=== PATIENT | female | born 2005 | race Caucasian/White ===

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

== ENCOUNTER 2024-05-05 18:53 | Emergency (ER) | payer OTHER, SELFPAY ==
[2024-05-05 19:06] VITALS: BP 145/82; PULSE 106; RESP 16; O2SAT 100
--- NOTE | 2024-05-05 19:13 | ED.GENADULT ---
HPI - General Adult General Chief complaint: Urogenital-Female Stated complaint: stomach bloated/side pain/can't urinate Time Seen by Provider: 05/05/24 19:13 Source: patient and RN notes reviewed Mode of arrival: ambulatory Limitations: no limitations History of Present Illness HPI narrative: 18-year-old female presented for complaint of left-sided abdominal pain radiating to the back, bloating and constipation over the past 9 days. Endorses some nausea and decreased urine output today. Pain is intermittent, sharp to the abdomen. Endorses dribbling and pain with urination at times. LBM today, but she states she has multiple stools a day. She was able to eat dinner, she had [employer] without difficulty. Denies vomiting, diarrhea, hematochezia, melena, fevers. patient is on Depo shot, no menses Related Data Home Medications Medication Instructions Recorded Confirmed lamotrigine 150 mg tablet 150 mg PO DAILY 11/30/20 05/05/24 clonidine HCl 0.1 mg tablet 0.1 mg PO BID 05/05/24 05/05/24 Allergies Allergy/AdvReac Type Severity Reaction Status Date / Time No Known Allergies Allergy Verified 03/20/24 08:30 Review of Systems Review of Systems: CONSTITUTIONAL: Denies body aches, fever, chills ENT: Denies rhinorrhea, congestion CARDIOVASCULAR: Denies chest pain, palpitations, or edema. RESPIRATORY: Denies cough or dyspnea. GASTROINTESTINAL: Endorses abdominal pain, nausea, Denies vomiting, diarrhea, hematochezia, melena, hematemesis GENITOURINARY: Endorses decreased urine output Denies hematuria, or CVA tenderness. SKIN: Denies rash, itching, or wounds. MUSCULOSKELETAL: Denies back pain, joint pain, or myalgia. NEUROLOGIC: Denies headache, numbness, tingling, or weakness. All systems reviewed & are unremarkable except as noted in HPI and below PMFSH Past Medical History Medical History Anxiety and depression Bipolar Irregular periods No significant past medical history Surveillance for Depo-Provera contraception Surgical History Surgical History No significant past surgical history Family History Family History Other No significant family history Social History Social History Smoking status: Never smoker Second hand tobacco smoke exposure: No Alcohol intake: current Alcohol use details: 1-2 a year Substance use: never Substance use type: does not use Do You Feel Safe in your Home?: Yes Lack of Transportation: No Lack of Food: Never True Current Housing: I Have Housing Concerned About Future Housing: No Difficulty Paying Gas/Electric Bills: No Difficulty Paying for Meds: No Currently Unemployed: No Education: High School Diploma/GED Difficulty w/ Childcare or Family Care: No Living arrangements: with family Additional living arrangements comments: mother father Occupation/Education: occupation Additional occupation/education comments: [employer] Gender identity (if verbalized by the patient): Female Sexual Orientation (if Verbalized by the Patient): Straight or Heterosexual Comments At time of signature, I have reviewed and agree with nursing past medical, surgical, social and family history unless otherwise noted. Please see nursing chart for further information. There is no relevant family history pertinent to the presenting complaint Exam Narrative: GENERAL: mildly ill-appearing, and in no acute distress. EYES: EOMI. Conjunctivae normal. ENT: Mucous membranes pink and moist. CHEST: No respiratory distress. Clear to auscultation. HEART: Regular rate and rhythm. No murmur appreciated. Normal peripheral pulses. ABDOMEN: abd soft, nondistended, normal active bowel sounds. diffusely tender abdomen with guarding, re
[2024-05-05 19:19] LABS: EDUAAPPEAR Clear; EDUABILI Negative; EDUABLOOD Negative; EDUACOLOR1 Light/Pale; EDUAGLUCOSE Negative; EDUAKETONE Negative; EDUALEUKO Negative; EDUANITRATE Negative; EDUAPROTEIN Negative
== END 2024-05-05 19:25 | disposition short-term general hospital (02) ==
LOC: EXPBETH 18:55
PROVIDERS: Emergency Provider Nurse Practitioner Family; PCP Pediatrics
DX: R10.30 Lower abdominal pain, unspecified (principal); F31.9 Bipolar disorder, unspecified
CPT/HCPCS: 81003; 99212; G0463

== ENCOUNTER 2024-05-26 15:33 | Emergency (ER) | payer OTHER, SELFPAY ==
[2024-05-26 15:40] VITALS: BP 129/75; PULSE 96; RESP 20; TEMP 37.4; O2SAT 100
[2024-05-26 16:03] LABS: EDUAAPPEAR Cloudy; EDUABILI Negative; EDUABLOOD 1+; EDUACOLOR1 Yellow; EDUAGLUCOSE Negative; EDUAKETONE Negative; EDUALEUKO 1+; EDUANITRATE Negative; EDUAPH 8.5; EDUAPROTEIN 1+
--- NOTE | 2024-05-26 16:08 | ED.FEMALEGU ---
HPI - Female Genitourinary General Chief complaint: Abdominal Pain Stated complaint: pain on right side/nausea Time Seen by Provider: 05/26/24 16:08 Source: patient Mode of arrival: ambulatory Limitations: no limitations History of Present Illness HPI Narrative: 18-year-old female presents with complaint of urinary frequency, burning for 4 days. Reports right lower abdominal pain, low-grade fever, nausea starting today. Patient reports history kidney infection, kidney stones. No flank pain at this time. Able to keep down fluids, has not vomited. All systems reviewed and negative except as noted above. Related Data Home Medications Medication Instructions Recorded Confirmed clonidine HCl 0.1 mg tablet 0.1 mg PO BID 05/05/24 05/26/24 fluticasone 250 mcg-salmeterol 50 inhalation 05/26/24 05/26/24 mcg/dose blistr powdr for inhalation lamotrigine 25 mg tablet 25 mg PO DAILY 05/26/24 05/26/24 Allergies Allergy/AdvReac Type Severity Reaction Status Date / Time No Known Allergies Allergy Verified 05/26/24 15:49 Review of Systems Review of Systems: CONSTITUTIONAL: Denies fever, chills, or sweats. EYES: Denies visual changes, redness, or discharge. ENT: Denies rhinorrhea, congestion, sore throat, or otalgia. CARDIOVASCULAR: Denies chest pain, palpitations, or edema. RESPIRATORY: Denies cough or dyspnea. GASTROINTESTINAL: Reports right suprapubic abdominal pain, nausea. Denies vomiting, or diarrhea. GENITOURINARY: Reports dysuria, frequency. Denies hematuria. SKIN: Denies rash or itching. MUSCULOSKELETAL: Denies back pain, joint pain, or myalgia. NEUROLOGIC: Denies headache, numbness, or weakness. PSYCHIATRIC: Denies anxiety or depression. All other systems reviewed are negative, except as documented in HPI. [facility] Past Medical History Medical History Anxiety and depression Bipolar Irregular periods No significant past medical history Surveillance for Depo-Provera contraception Surgical History Surgical History No significant past surgical history Family History Family History Other No significant family history Social History Social History Smoking status: Never smoker Second hand tobacco smoke exposure: No Alcohol intake: current Alcohol use details: 1-2 a year Substance use: never Substance use type: does not use Do You Feel Safe in your Home?: Yes Lack of Transportation: No Lack of Food: Never True Current Housing: I Have Housing Concerned About Future Housing: No Difficulty Paying Gas/Electric Bills: No Difficulty Paying for Meds: No Currently Unemployed: No Education: High School Diploma/GED Difficulty w/ Childcare or Family Care: No Living arrangements: with family Additional living arrangements comments: mother father Occupation/Education: occupation Additional occupation/education comments: [employer] Gender identity (if verbalized by the patient): Female Sexual Orientation (if Verbalized by the Patient): Straight or Heterosexual Comments At time of signature, agree with nursing past medical, surgical, social and family history. There is no relevant family history pertinent to the presenting complaint. Exam Narrative: GENERAL: This is a well-nourished, well-developed patient, in no apparent distress. HEAD: normocephalic, atraumatic. EYES: PERRL. Sclera clear/white. Vision is grossly intact. EARS: External ears normal NOSE: External nose normal NECK: Neck supple, non-tender without lymphadenopathy, masses or thyromegaly. CARDIOVASCULAR: Regular rate and rhythm without murmurs, gallops, or rubs. RESPIRATORY: Clear to auscultation. Breath sounds equal bilaterally. No wheezes, rales, or rhonchi. GASTROIN
[2024-05-26 16:21] LABS: BEDSIDEPREGUCG Negative
== END 2024-05-26 16:25 | disposition home or self-care (01) ==
PROVIDERS: Emergency Provider Nurse Practitioner Family; PCP Pediatrics
DX: N39.0 Urinary tract infection, site not specified (principal); B95.7 Other staphylococcus as the cause of diseases classified elsewhere; F41.9 Anxiety disorder, unspecified; F31.9 Bipolar disorder, unspecified
CPT/HCPCS: 81003; 81025; 87077; 87086; 87088; 99213; G0463

== ENCOUNTER 2024-07-12 09:26 | Emergency (ER) | payer OTHER, SELFPAY ==
[2024-07-12 09:37] VITALS: BP 115/74; PULSE 86; RESP 18; TEMP 36.8; O2SAT 100
--- NOTE | 2024-07-12 10:29 | ED.GENADULT ---
HPI - General Adult General Chief complaint: Upper Respiratory Infection Stated complaint: Congestion/Cough Source: patient Mode of arrival: ambulatory Limitations: no limitations History of Present Illness HPI narrative: Patient presents for evaluation of sick symptoms. She has experience left-sided ear pain and increased pressure for several days. Two days ago she developed sinus congestion and a cough. She reports yellow nasal discharge. No fever, chills, nausea, vomiting or diarrhea. She has been taking mucinex and dayquil for her symptoms. Recent sick contacts to her knowledge. She does not smoke. Related Data Home Medications Medication Instructions Recorded Confirmed lamotrigine 25 mg tablet 25 mg PO DAILY 05/26/24 05/26/24 Allergies Allergy/AdvReac Type Severity Reaction Status Date / Time No Known Allergies Allergy Verified 05/26/24 15:49 Review of Systems Review of Systems: CONSTITUTIONAL: Denies fever, chills, or sweats. EYES: Denies visual changes, redness, or discharge. ENT: Reports sinus congestion, left-sided otalgia/pressure and yellow nasal drainage. Denies sore throat CARDIOVASCULAR: Denies chest pain, palpitations, or edema. RESPIRATORY: Denies cough or dyspnea. GASTROINTESTINAL: Denies abdominal pain, nausea, vomiting, or diarrhea. GENITOURINARY: Denies dysuria or hematuria. SKIN: Denies rash or itching. MUSCULOSKELETAL: Denies back pain, joint pain, or myalgia. NEUROLOGIC: Denies headache, numbness, dizziness, or weakness. PSYCHIATRIC: Denies anxiety or depression. [facility] Past Medical History Medical History Anxiety and depression Bipolar Irregular periods No significant past medical history Surveillance for Depo-Provera contraception Surgical History Surgical History No significant past surgical history Family History Family History Other No significant family history Social History Social History Smoking status: Never smoker Second hand tobacco smoke exposure: No Alcohol intake: current Alcohol use details: 1-2 a year Substance use: never Substance use type: does not use Do You Feel Safe in your Home?: Yes Lack of Transportation: No Lack of Food: Never True Current Housing: I Have Housing Concerned About Future Housing: No Difficulty Paying Gas/Electric Bills: No Difficulty Paying for Meds: No Currently Unemployed: No Education: High School Diploma/GED Difficulty w/ Childcare or Family Care: No Living arrangements: with family Additional living arrangements comments: mother father Occupation/Education: occupation Additional occupation/education comments: [employer] Gender identity (if verbalized by the patient): Female Sexual Orientation (if Verbalized by the Patient): Straight or Heterosexual Exam Narrative: GENERAL: Well-appearing, well-nourished, and in no acute distress. HEAD: Normocephalic, atraumatic. EYES: PERRLA and EOMI. ENT: Nares clear, no rhinorrhea or epistaxis. There is frontal and bilateral maxillary sinus tenderness. Mucous membranes moist. Oropharynx without tonsillar hypertrophy exudate or other lesions. Left tympanic membrane is erythematous and bulging. NECK: Supple. No adenopathy or masses. No carotid bruits or JVD CHEST: Clear to auscultation. No respiratory distress. No wheezes rales or rhonchi HEART: Regular rate and rhythm. No murmur heard. Normal peripheral pulses. ABDOMEN: Soft, nontender, nondistended, normal active bowel sounds. EXTREMITIES: Normal range of motion. No edema. SKIN: Warm, dry, no rash. NEURO: No focal deficits. Alert and oriented x3. PSYCH: Normal mood and affect. Course Course Emergency Course: This is a 18
== END 2024-07-12 10:30 | disposition home or self-care (01) ==
PROVIDERS: Emergency Provider Nurse Practitioner; PCP Nurse Practitioner
DX: H66.92 Otitis media, unspecified, left ear (principal); F31.9 Bipolar disorder, unspecified
CPT/HCPCS: 99213; G0463

== ENCOUNTER 2024-09-17 11:36 | Emergency (ER) | payer OTHER, SELFPAY ==
[2024-09-17 11:49] VITALS: BP 133/70; PULSE 92; RESP 18; TEMP 36.8; O2SAT 100
--- NOTE | 2024-09-17 11:55 | ED.URI ---
HPI - URI/Sore Throat General Chief Complaint: Upper Respiratory Infection Stated Complaint: Sore Throat Time Seen by Provider: 09/17/24 12:00 Source: patient, RN notes reviewed and old records reviewed Mode of arrival: ambulatory Limitations: no limitations History of Present Illness HPI Narrative: 18-year-old female who presents to [facility] with complaints of sore throat since yesterday described as scratchy and does hurt to swallow.Patient reports that she has had a headache and neck ache and also runny nose. Patient reports that her ears have pressure feeling also. Patient has been taking some DayQuil for her symptoms. Patient reports that she went to work today and they told her to go home since she felt so bad. MD elicited complaint: sore throat Pertinent past history: other (strep throat,tonsillitis) Onset (ago): day(s) (since yesterday day 2 of symptoms) Severity: moderate Able to tolerate fluids by mouth: Yes Treatments prior to arrival: other (DayQuil) Related Data Home Medications Medication Instructions Recorded Confirmed lamotrigine 25 mg tablet 25 mg PO DAILY 05/26/24 05/26/24 medroxyprogesterone 150 mg/mL mg IM 09/17/24 intramuscular suspension Allergies Allergy/AdvReac Type Severity Reaction Status Date / Time No Known Allergies Allergy Verified 09/17/24 11:41 Review of Systems Review of Systems: CONSTITUTIONAL: Reports malaise, chills, sweats, or fever. EYES: Denies visual changes, redness, or discharge. ENT: Reports rhinorrhea, congestion, sinus pain, ear pressure and positive for sore throat. CARDIOVASCULAR: Denies chest pain, palpitations, or edema. RESPIRATORY: Reports no acute cough.? Denies dyspnea. GASTROINTESTINAL: Denies abdominal pain, nausea, vomiting, diarrhea SKIN: Denies rash or itching. MUSCULOSKELETAL: Denies myalgia. NEUROLOGIC: Reports headache. All systems reviewed & are unremarkable except as noted in HPI and below PMFSH Past Medical History Medical History Anxiety and depression Bipolar Irregular periods No significant past medical history Surveillance for Depo-Provera contraception Surgical History Surgical History No significant past surgical history Family History Family History Other No significant family history Social History Social History Smoking status: Current every day smoker Tobacco type: e-cigarettes/vaping Second hand tobacco smoke exposure: No Alcohol intake: current Alcohol use details: 1-2 a year Substance use: never Substance use type: does not use Do You Feel Safe in your Home?: Yes Lack of Transportation: No Lack of Food: Never True Current Housing: I Have Housing Concerned About Future Housing: No Difficulty Paying Gas/Electric Bills: No Difficulty Paying for Meds: No Currently Unemployed: No Education: High School Diploma/GED Difficulty w/ Childcare or Family Care: No Living arrangements: with family Additional living arrangements comments: mother father Occupation/Education: occupation Additional occupation/education comments: [employer] Gender identity (if verbalized by the patient): Female Sexual Orientation (if Verbalized by the Patient): Straight or Heterosexual Comments At time of signature, agree with nursing past medical, surgical, social and family history. There is no relevant family history pertinent to the presenting complaint Exam Narrative: GENERAL: Well-appearing, well-nourished, and in no acute distress. HEAD: Normocephalic EYES: PERRLA, conjunctivae clear ENT: Nares clear, turbinates edematous and erythematous, clear discharge. Mucous membranes moist. TM pearly siddiqui with dull light reflex bilaterally; no tragal tenderness. Oropharynx erythematous without lesions. Tonsils red enlarged and without exudate, no drooling, no hoarseness, no trismus, uvula midline.post nasal drainage NECK: Supple. lymphadenopathy CHEST: Clear to auscultation, breath sounds equal. No wheezing, rhonchi, rales, or stridor. No respiratory distress, speaks in full sentences.SAO2 100% on room air HEART: Regular rate and rhythm. No murmur heard. SKIN: Warm, dry, no rash. NEURO: Alert and oriented x3. PSYCH: Normal mood and affect Course Course Emergency Course: Patient is aware of diagnosis, understands and agrees to treatment plan.? Anticipatory guidance given.? Patient agrees to follow-up as directed and is aware of reasons to seek care at the emergency department. Portions of this record may have been created with voice recognition software Level of Care: Express Care Visit Vital Signs Vital signs: Vital Signs Temperature 36.8 C 09/17/24 11:49 Pulse Rate 92 09/17/24 11:49 Respiratory Rate 18 09/17/24 11:49 Blood Pressure 133/70 09/17/24 11:49 Pulse Oximetry 100 09/17/24 11:49 Oxygen Delivery Room Air 09/17/24 11:49 Temperature 36.8 C 09/17/24 12:15 Pulse Rate 92 09/17/24 12:15 Respiratory Rate 18 09/17/24 12:15 Blood Pressure 133/70 09/17/24 12:15 Pulse Oximetry 100 09/17/24 12:15 Oxygen Delivery Room Air 09/17/24 12:15 Reviewed MDM - URI/Sore Throat MDM Narrative Medical decision making narrative: Differential diagnosis considered: Griffith virus, strep pharyngitis, allergic rhinitis, upper respiratory tract infection, sinusitis, rhinosinusitis, nasopharyngitis. viral pharyngitis, otitis media, otitis externa, pneumonia, bronchitis, viral cough syndrome, viral syndrome, and influenza.? Exam findings show no acute concerns or changes; patient is non-toxic appearing and is in no distress.? Patient is appropriate for outpatient treatment and follow-up. Differential Diagnosis Differential diagnosis: Likely upper respiratory infection, sinusitis, viral infection, pharyngitis and other (strep pharyngitis, tonsillitis) Medical Records Attestation: I reviewed the patient's medical records. Lab Data Attestation: I reviewed the patient's lab results. Lab results narrative: strep screen negative culture sent Labs: Lab Results 09/17/24 Range/Units 11:57 POC Grp A Strep Screen Negative (Negative) Critical Care Time Critical Care Time Critical Care Time: No Discharge Plan Discharge Clinical Impression: Acute tonsillitis Patient Disposition: Home, Self-Care Condition: Stable Instructions: Antibiotic Form, Tonsillitis (ED) Additional Instructions: . Take the entire course of antibiotics. Throw away your current toothbrush and begin using a new toothbrush in 48 hours in order to prevent re-infection. Sanitize all reusable water bottles . Do not share items with others. Salt water gargles may alleviate some of the throat discomfort. You can take Tylenol or ibuprofen per the package instructions for pain/fever. Zyrtec or Claritin daily may include plain sudafed one daily If your symptoms persist, change or worsen significantly before you can contact your personal physician then please, without delay, go to the emergency department for further evaluation. Follow-up with PCP in 7-10 days or sooner if needed Follow up with PCP soon in regards to your blood pressure which is elevated above threshold for referral. Blood pressure above 120/80 may indicate pre-hypertension. 133/70 Prescriptions: New amoxicillin 500 mg capsule 500 mg PO Q8H Qty: 30 0RF methylprednisolone [Medrol (Ken)] 4 mg tablets,dose pack See Rx Instructions .ROUTE .COMPLEX Qty: 21 0RF Rx Instructions: orally per package directions No Action lamotrigine 25 mg tablet 25 mg PO DAILY medroxyprogesterone 150 mg/mL suspension IM Follow-up/Referrals: Mario,Kathryn Johnson [Primary Care Provider] - Stand Alone Forms: Work/School Release IP Time of Disposition: 12:24 Quality Antonio Coma Scale Eyes: Open Verbal: Oriented and Alert Motor: Follows Commands [place] Coma Total Score: 15
[2024-09-17 11:59] LABS: EDSTREPNEGPOS1 Negative (Negative)
[2024-09-17 12:15] VITALS: BP 133/70; PULSE 92; RESP 18; TEMP 36.8; O2SAT 100
== END 2024-09-17 12:45 | disposition home or self-care (01) ==
PROVIDERS: Emergency Provider Registered Nurse; PCP Nurse Practitioner
DX: J03.90 Acute tonsillitis, unspecified (principal); F17.290 Nicotine dependence, other tobacco product, uncomplicated; F31.9 Bipolar disorder, unspecified
CPT/HCPCS: 87081; 87880; 99213; G0463

== ENCOUNTER 2024-10-02 08:09 | Emergency (ER) | payer OTHER, SELFPAY ==
--- NOTE | ~2024-10-02 | XR_ITS ---
EXAMINATION: XR chest 2V 10/02/2024 08:59 INDICATION: Cough for 3 weeks. Shortness of breath. PROCEDURE: 2 view chest COMPARISON: No prior studies for comparison. FINDINGS: The lungs are clear. The cardiomediastinal silhouette is within normal limits. There are no pleural effusions. There is no pneumothorax suspected. IMPRESSION: 1: NO ACUTE CARDIOPULMONARY DISEASE. Reviewed, dictated and finalized at location B. CURER
[2024-10-02 08:22] VITALS: BP 123/79; PULSE 111; RESP 14; TEMP 36.8; O2SAT 99
--- NOTE | 2024-10-02 08:31 | ED_ITS ---
HPI - URI/Sore Throat General Chief Complaint: Upper Respiratory Infection Stated Complaint: Cough/Sore Throat Time Seen by Provider: 10/02/24 08:32 Source: patient, RN notes reviewed and old records reviewed Mode of arrival: ambulatory Limitations: no limitations History of Present Illness HPI Narrative: 18 year old female with complaints of cough which is hacking and sore throat for past 3 days. Patient reports that before she was treated for tonsillitis and received antibiotic and steroid and she did get better for about 3-4 days and then symptoms have come back. Patient reports that she has coughed so much that her sides are sore and her mucous is thick white and has noted some wheezing when supine. Patient reports that she has felt feverish but has not taken her temperature. MD elicited complaint: cough and sore throat Pertinent past history: other (tonsillitis) Onset (ago): day(s) (3) Severity: moderate Able to tolerate fluids by mouth: Yes Treatments prior to arrival: acetaminophen and other (Benadryl) Related Data Home Medications ?Medication ?Instructions ?Recorded ?Confirmed ?Last Taken ?Type lamotrigine 25 mg tablet 25 mg PO DAILY 05/26/24 10/02/24 Unknown History medroxyprogesterone 150 mg/mL mg IM 09/17/24 Unknown History intramuscular suspension Allergies Allergy/AdvReac Type Severity Reaction Status Date / Time No Known Allergies Allergy Verified 10/02/24 08:30 Review of Systems Review of Systems: CONSTITUTIONAL: Reports malaise, chills, sweats, reports has felt feverish. EYES: Denies visual changes, redness, or discharge. ENT: Reports rhinorrhea, congestion, sinus pain, no otalgia and positive for sore throat. CARDIOVASCULAR: Denies chest pain, palpitations, or edema. RESPIRATORY: Reports cough.? Denies dyspnea, reports she has coughed so much her sides hurt and has noted wheezing when supine GASTROINTESTINAL: Denies abdominal pain, nausea, vomiting, diarrhea SKIN: Denies rash or itching. MUSCULOSKELETAL: Denies myalgia. NEUROLOGIC: Denies headache. All systems reviewed & are unremarkable except as noted in HPI and below PMFSH Past Medical History Medical History Anxiety and depression Bipolar Irregular periods No significant past medical history Surveillance for Depo-Provera contraception Surgical History Surgical History No significant past surgical history Family History Family History Other No significant family history Social History Social History Smoking status: Current every day smoker Tobacco type: e-cigarettes/vaping Second hand tobacco smoke exposure: No Alcohol intake: current Alcohol use details: 1-2 a year Substance use: never Substance use type: does not use Do You Feel Safe in your Home?: Yes Lack of Transportation: No Lack of Food: Never True Current Housing: I Have Housing Concerned About Future Housing: No Difficulty Paying Gas/Electric Bills: No Difficulty Paying for Meds: No Currently Unemployed: No Education: High School Diploma/GED Difficulty w/ Childcare or Family Care: No Living arrangements: with family Additional living arrangements comments: mother father Occupation/Education: occupation Additional occupation/education comments: [employer] Gender identity (if verbalized by the patient): Female Sexual Orientation (if Verbalized by the Patient): Straight or Heterosexual Comments At time of signature, agree with nursing past medical, surgical, social and family history. There is no relevant family history pertinent to the presenting complaint Exam Narrative: GENERAL: Well-appearing, well-nourished, and in no acute distress. HEAD: Normocephalic EYES: PERRLA, conjunctivae clear ENT: Nares clear, turbinates edematous and erythematous, clear discharge. Mucous membranes moist. TM pearly siddiqui with dull light reflex bilaterally; no tragal tenderness. Oropharynx erythematous without lesions. Tonsils enlarged and without exudate, no drooling, no hoarseness, no trismus, uvula midline.post nasal drainage NECK: Supple. No lymphadenopathy CHEST: Clear to auscultation, breath sounds equal. No wheezing, rhonchi, rales, or stridor. No respiratory distress, speaks in full sentences.dry cough noted, SAO2 99% on room air HEART: Regular rate and rhythm. No murmur heard. SKIN: Warm, dry, no rash. NEURO: Alert and oriented x3. PSYCH: Normal mood and affect Course Course Emergency Course: Patient is aware of diagnosis, understands and agrees to treatment plan.? Anticipatory guidance given.? Patient agrees to follow-up as directed and is aware of reasons to seek care at the emergency department. Portions of this record may have been created with voice recognition software Level of Care: Express Care Visit Vital Signs Vital signs: Vital Signs Temperature 36.8 C 10/02/24 08:22 Pulse Rate 111 H 10/02/24 08:22 Respiratory Rate 14 10/02/24 08:22 Blood Pressure 123/79 10/02/24 08:22 Pulse Oximetry 99 10/02/24 08:22 Oxygen Delivery Room Air 10/02/24 08:22 Temperature 36.8 C 10/02/24 08:22 Pulse Rate 111 H 10/02/24 08:22 Respiratory Rate 14 10/02/24 08:22 Blood Pressure 123/79 10/02/24 08:22 Pulse Oximetry 99 10/02/24 08:22 Oxygen Delivery Room Air 10/02/24 08:22 Reviewed MDM - URI/Sore Throat MDM Narrative Medical decision making narrative: Differential diagnosis considered: Griffith virus, strep pharyngitis, allergic rhinitis, upper respiratory tract infection, sinusitis, rhinosinusitis, nasopha ryngitis. viral pharyngitis, otitis media, otitis externa, pneumonia, bronchitis, viral cough syndrome, viral syndrome, and influenza.? Exam findings show no acute concerns or changes; patient is non-toxic appearing and is in no distress.? Patient is appropriate for outpatient treatment and follow-up. Differential Diagnosis Differential diagnosis: Likely upper respiratory infection, sinusitis, viral infection, bronchitis, influenza, pharyngitis and other (strep pharyngitis,COVID) Medical Records Attestation: I reviewed the patient's medical records. Lab Data Attestation: I reviewed the patient's lab results. Lab results narrative: Strep screen negative, culture sent,Influenza A negative, Influenza B negative, COVID negative Labs: Lab Results 10/02/24 Range/Units 09:14 POC Influenza A Ag Negative (Negative) POC Influenza B Ag Negative (Negative) POC SARS CoV-2 Ag Negative (Negative) POC Grp A Strep Screen Negative (Negative) Imaging Data Attestation: I personally reviewed and interpreted this imaging study as follows: My impression: no acute cardiopulmonary disease Radiologist's impression: [facility] [address] [place] [address] XRay Report Signed Patient: Adela Man : 2005 MR#: [id number] Age: 18 Acct:[id number] Loc: [facility] ADM Date: 10/02/24Attending Dr: Ordering Physician: Lola Escalera APRN Date of Service: 10/02/24 Procedure(s): XR chest 2V Accession Number(s): [id number] cc: Mario, Kathryn Johnson; Lola Escalera AERODYNAMICIST~ EXAMINATION: XR chest 2V 10/02/2024 08:59 INDICATION: Cough for 3 weeks. Shortness of breath. PROCEDURE: 2 view chest COMPARISON: No prior studies for comparison. FINDINGS: The lungs are clear. The cardiomediastinal silhouette is within normal limits. There are no pleural effusions. There is no pneumothorax suspected. IMPRESSION: 1: NO ACUTE CARDIOPULMONARY DISEASE. Reviewed, dictated and finalized at location B. [facility] Dictated By: Maldonado Wang MD 10/02/24 0905 Signed By: <Electronically signed by Maldonado Wang MD in OV> Critical Care Time Critical Care Time Critical Care Time: No Discharge Plan Discharge Clinical Impression: URI with cough and congestion Patient Disposition: Home, Self-Care Condition: Stable Instructions: Upper Respiratory Infection (ED) Additional Instructions: Increase fluids especially juices and water Oduu-zho-pbfwint cough and cold medicine of your choice for your symptoms Zyrtec Claritin or Sarah daily may use plain Sudafed in a.m. Steroids as directed--take with food heat to the face 20-30 minutes 4-6 times a day for pain Salt water gargles, throat lozenges or throat sprays as desired Monitor for any fevers, chills or body aches If your symptoms persist, change or worsen significantly before you can contact your personal physician then please, without delay, go to the emergency department for further evaluation. Follow-up with PCP in 7-10 days or sooner if needed Follow up with PCP soon in regards to your blood pressure which is elevated above threshold for referral. Blood pressure above 120/80 may indicate pre- hypertension. Minimal elevation 123/79 Patient Language: [place]ese Prescriptions: New prednisone 20 mg tablet 20 mg PO BID Qty: 10 0RF Rx Instructions: Take with food No Action lamotrigine 25 mg tablet 25 mg PO DAILY medroxyprogesterone 150 mg/mL suspension IM methylprednisolone [Medrol (Ken)] 4 mg tablets,dose pack See Rx Instructions .ROUTE .COMPLEX Qty: 21 0RF Rx Instructions: orally per package directions Follow-up/Referrals: Mario,Kathryn Johnson [Primary Care Provider] - Stand Alone Forms: Work/School Release IP Time of Disposition: 09:18 Quality Antonio Coma Scale Eyes: Open Verbal: Oriented and Alert Motor: Follows Commands [place] Coma Total Score: 15
[2024-10-02 09:16] LABS: EDCOVIDSCREEN Negative (Negative); EDINFLUASCREEN Negative (Negative); EDINFLUBSCREEN Negative (Negative); EDSTREPNEGPOS1 Negative (Negative)
== END 2024-10-02 09:25 | disposition home or self-care (01) ==
PROVIDERS: Emergency Provider Registered Nurse; PCP Nurse Practitioner
DX: J06.9 Acute upper respiratory infection, unspecified (principal); R05.9 Cough, unspecified; Z20.822 Contact with and (suspected) exposure to COVID-19; F17.290 Nicotine dependence, other tobacco product, uncomplicated; F31.9 Bipolar disorder, unspecified
CPT/HCPCS: 71046; 87081; 87426; 87804; 87880; 99213; G0463

== ENCOUNTER 2025-05-07 19:09 | Emergency (ER) | payer OTHER, SELFPAY ==
--- OUTSIDE RECORDS SUMMARY | 2025-05-07 19:11 | XMS_ITS | Clinical Summary ---
Author Organization [facility] [employer] Address [address] [place] [address] Care Team Providers Care Electrical Supervisor Name Role Phone Elieser Llanos MD Primary Care Provider [phone] Source Comments [facility],non-owned Affiliates and Associated Physician Practices is amultiple site organization consisting of ambulatory clinics and hospital sitesin [place], [place], [place] and [place]. This disclosure is being madepursuant to the Care Everywhere program and may not contain all information available regarding this patient. Last updated 18.[facility] [employer] Allergies No known active allergies Medications * Be aware that medications may not be up to date on this document. Alwaysverify current medications with the patient. 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 SHOVEL OPERATOR Gender Identity Not on file Sexual Orientation Not on file Last Filed Vital Signs Vital Sign Reading Time Taken Comments Blood Pressure 114/66 09/20/2017 9:54 AM STRIPPING SHOVEL OPERATOR Pulse 72 09/20/2017 9:54 AM STRIPPING SHOVEL OPERATOR Temperature - - Respiratory Rate 16 09/20/2017 9:54 AM STRIPPING SHOVEL OPERATOR Oxygen Saturation - - Inhaled Oxygen Concentration - - Weight 64.4 kg (142 lb) 09/20/2017 9:54 AM STRIPPING SHOVEL OPERATOR Height 174 cm (5' 8.5) 09/20/2017 9:54 AM STRIPPING SHOVEL OPERATOR Body Mass Index 21.28 09/20/2017 9:54 AM STRIPPING SHOVEL OPERATOR Plan of Treatment Health Maintenance Due Date Last Done Comments HIV SCREENING 2019 HPV VACCINE (1 - 3-dose series) 2019 CHLAMYDIA/GONORRHEA SCREENING 2020 MENINGOCOCCAL (Group B) VACC INE SHARED DECISION-MAKING (1 of 2 - Standard) 2020 HEPATITIS C SCREENING 10/29/2022 DTAP/TDAP/TD VACCINES (1 - Tdap) 2023 HEPATITIS B VACCINE (1 of 3 - 19+ 3-dose series) 2023 COVID-19 VACCINE (1 - 2023-2 5 season) 2024 DEPRESSION SCREENING 10/22/2024 INFLUENZA VACCINE (#1) 2025 ZOSTER VACCINE (1 of 2) 2054 HIB VACCINE Aged Out No longer eligi ble based on patient's age to complete this topic MENINGOCOCCAL GROUPS A/C/Y/W VACCINE Aged Out No longer eligible b ased on patient's age to complete this topic PNEUMOCOCCAL VACCINE Aged Out No long er eligible based on patient's age to complete this topic Insurance [facility] Care Teams Electrical Supervisor Relationship Specialty Start Date End Date Elieser Llanos MD [address] [place] [address] PCP - General Pediatrics 09/20/17
--- OUTSIDE RECORDS SUMMARY | 2025-05-07 19:11 | XMS_ITS | Encounter Summary ---
Author Organization [facility] Healthcare Address [address] [place] [address] Care Team Providers Care Pediatric Dietician Name Role Phone Kathryn Martin NP Primary Care Provider [phone] Encounter Details Date Type Department Care Team ([facility] st Contact Info) Description 07/07/2024 Telephone [facility] [address] [address] Kathryn Martin NP [address] [place] [address] Social History Tobacco Use Types Packs/Day Years Used Date Smoking Tobacco: Never Passive Smoke Exposure: Never Smokeless Tobacco: Never Alcohol Use Standard Drinks/Week Comments Never 0 (1 standard drink = 0.6 oz pur e alcohol) AUDIT-C Answer Date Recorded Q1: How often do you have a drink containing alcohol? Never 06/10/2024 Q2: How many drinks containi ng alcohol do you have on a typical day when you are drinking? Patient does not drink Q3: How often do you have si x or more drinks on one occasion? Never 06/10/2024 PHQ-2 Answer Date Recorded PHQ-2 Total Score (If total score is 3 or more points, staff should administer the PHQ-9) 0 06/10/2024 Personal Safety Answer Date Recorded Have you ever been in or are you currently in a harmful physical or emotional relationship or is someone making you feel afraid or unsafe? Denies 05/05/2024 Comments No Sex and Gender Information Value Date Recorded Sex Assigned at Not on file Legal Sex Female 9:26 AM CDT Gender Identity Not on file Sexual Orientation Not on file documented as of this encounter Plan of Treatment Not on file documented as of this encounter Visit Diagnoses Not on filedocumented in this encounter Care Teams Pediatric Dietician Relationship Specialty Start Date End Date Kathryn Martin NP PCP - General Family Medicine 06/10/24 documented as of this encounter
--- OUTSIDE RECORDS SUMMARY | 2025-05-07 19:11 | XMS_ITS | Encounter Summary ---
Author Organization [facility] Healthcare Address [address] [place] [address] Care Team Providers Care Vessel Crew Member Name Role Phone Kathryn Martin NP Primary Care Provider [phone] Reason for Visit * Reason Onset Date Comments Labs 05/06/2025 Encounter Details Date Type Department Care Team ([facility] st Contact Info) Description 05/06/2025 Telephone [facility] [address] [place] [address] Kathryn Martin NP [address] [place] [address] Labs Social History Tobacco Use Types Packs/Day Years [...] points, staff should administer the PHQ-9) 0 04/01/2025 Personal Safety Answer Date Recorded Have you [...] on file documented as of this encounter Miscellaneous Notes * Telephone Encounter - Mariana Ross MA - 05/06/2025 10:00 AM CDT Reached out to pt to inform of lab orders to complete before appt. Caller unavailable, unable to leave voicemail. documented in this encounter Plan of Treatment Not on file documented as of this encounter Visit Diagnoses Not on filedocumented in this encounter Care Teams Vessel Crew Member Relationship Specialty Start Date End Date Kathryn Martin NP PCP - General Family Medicine 06/10/24 documented as of this encounter
--- OUTSIDE RECORDS SUMMARY | 2025-05-07 19:11 | XMS_ITS | Clinical Summary ---
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 18 tablet 4 07/29/20 24 025 Active albuterol HFA (PROVENTIL HFA,VENTOLIN HFA,PROAIR HFA) 90 mcg/actuation inhaler Inhale 2 puffs every 4 (four) hours as needed for wheezing or shortness of breath 1 each 3 08/26/20 24 025 Active ondansetron ODT (ZOFRAN-ODT) 4 mg disintegrating tabletIndications:V iral gastroenteritis Take 1 tablet (4 mg total) by mouth every 8 (eight) hours as needed for nausea or vomiting 30 tablet 1 10/23/19 25 Active norelgestromin-ethi n.estradioL (ORTHO EVRA) 150-35 mcg/[address] 1 patch on the skin once a week 03/15/20 25 Active traZODone (DESYREL) 50 mg tablet Take 1 tablet (50 mg total) by mouth nightly 01/08/20 25 Active melatonin 5 mg tablet Take 1 tablet (5 mg total) by mouth as needed (OTC) Active Active Problems Problem Noted Date Diagnosed Date Viral gastroenteritis 10/23/2024 Assessment & Plan (10/23/2024 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 Suggested getting an electrolyte drink. Can continue Zofran as needed. Discussed bland food diet, gradually increasing as tolerated. Reviewed signs and symptoms warranting immediate evaluation such as inability to keep fluids down, fevers or severe abdominal pain. Ingestion of substance 07/03/2024 Migraine without aura and wi thout status migrainosus, not intractable 06/10/2024 Assessment & Plan (07/29/2024 10:33 AM CDT): Normal eye exam per patient Minimal relief with Sumatriptan Relpax and Zofran sent to pharmacy MRI ordered and referral to neurology placed Toradol inj given in office; obtained some relief prior to leaving office Assessment & Plan (06/10/2024 11:17 AM CDT): Chronic, symptoms for the past 2 years No relief with Tylenol, Motrin, or Excedrin Has not eye exam recently; will call to schedule Sumatriptan 50 mg as needed migraine Discussed referral to neurology 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 Saleem at [facility] Continue Lamotrigine 25 mg BID Family history of hypertrophic cardiomyopathy Elevated blood pressure read ing without diagnosis of hypertension 03/11/2024 HERNANDEZ (dyspnea on exertion) 03/11/2024 Palpitations 03/11/2024 Other specified symptoms and signs involving the circulatory and respiratory systems 03/11/2024 Overweight with body mass in dex (BMI) of 29 to 29.9 in adult 03/11/2024 Encounters Date Type Department Care Team Description 05/06/2025 [facility]phone [facility] [address] [address] Kathryn Martin NP Labs 04/01/2025 10:15 AM CDT Office Visit [facility] [address] [address] Daryl Fiore MD Neck pain (Primary Dx); Chronic tension-type headache, not intractable 03/27/2025 [facility]phone [facility] [address] [place] [address] Kathryn Martin NP Appointment Request from Last 3 Months Immunizations Immunization Administration Dates Next Due DTaP / Hep B / IPV 05/03/2005,03/06/2005, 005 DTaP, Unspecified 02/28/2010, 6,05/03/2005,03/06,01/02/2005 Hep A, Unspecified 02/28/2010,02/28/2006 Hep B, Unspecified 05/03/2005,03/06/2005, 005 HiB 02/28/2006,03/06/2005,01/02/2005 Influenza, Unspecified 10/23/2024(Deferr ed: Patient Refused),07/29/2024(Deferred: Patient Refused),07/22/2024(Deferred: Patient Refused),07/03/2024(Deferred: Patient Refused),08/23/2023(Deferred: Patient Refused),07/30/2023(Deferred: Patient Refused),07/22/2023(Deferred: Patient Refused),07/22/2023(Deferred: Patient Refused),07/22/2022(Deferred: Patient Refused),07/22/2022(Deferred: Patient Refused),07/07/2016 MMR 02/28/2010,12/01/2005 Meningococcal B, unspecified 07/07/2016 Pfizer SARS-CoV-2 Monovalent Vaccination (12+ Yrs) XAVIER-READY TO USE 06/13/2022 Pneumococcal Conjugate PCV 13 12/01/2005 ,05/03/2005,03/06/2005,01/02 Polio, Unspecified 02/28/2010, 5,03/06/2005,01/02 Tdap 07/07/2016 Varicella 02/28/2010,12/01/2005 Surgical History Surgery Date Site/Laterality Comments NO PAST SURGERIES Medical History Medical History Date Comments No pertinent past medical history Anxiety and depression Asthma Migraine Family History Medical History Relation Name Comments Heart disease Father Hypertrophic cardiomyopathy Father Relation Name Status Comments Father Alive Mother Alive Sister Alive Social History Tobacco Use Types Packs/Day Years Used Date Smoking Tobacco: Never Passive Smoke Exposure: Never Smokeless Tobacco: Never Tobacco Cessation:Counseling Given: Not Answered Alcohol Use Standard Drinks/Week Comments Never 0 [...] on file Sexual Orientation Not on file Obstetrics History Last Filed Vital Signs Vital Sign Reading Time Taken Comments Blood Pressure 112/80 04/01/2025 10:15 AM CDT Pulse 104 04/01/2025 10:15 AM CDT Temperature 37.3 C (99.1 F) 04/01/2025 10:15 AM CDT Respiratory Rate 18 04/01/2025 10:15 AM CDT Oxygen Saturation 98% 04/01/2025 10:15 AM CDT Inhaled Oxygen Concentration - - Weight 82.1 kg (181 lb) 04/01/2025 10:15 AM CDT Height 172.7 cm (5' 8) 04/01/2025 10:15 AM CDT Body Mass Index 27.52 04/01/2025 10:15 AM CDT Plan of Treatment Health Maintenance Due Date Last Done Comments Hepatitis C Screening 2004 HPV Vaccines (1 - 3-dose series) 2019 Meningococcal B Vaccine (1 of 2 - Standard) 2020 07/07/2016 Regular Well Visit/Exam 18-64 2022 Covid-19 Vaccine (2 - season) 2024 06/13/2022 Influenza Vaccine (#1) 2025 07/07/2016 Depression Screening 04/01/2026 04/01/2025, 10/23/2024, 06/10/2024 DTaP/Tdap/Td Vaccine (7 - Td or Tdap) 07/07/2026 07/07/2016, 02/28/2010, 02/28/2006, Additional history exists Hepatitis B Screening Completed 05/03/2005 , 05/03/2005, 03/06/2005, Additional history exists Pneumococcal vaccine <65 Completed 006, 05/03/2005, 03/06/2005, Additional history exists Varicella Vaccines Completed 02/28/2010, 12/01/2005 Meningococcal Vaccine Aged Out No leo wiliam eligible based on patient's age to complete this topic Insurance [facility] [facility] PPO [facility] Care Teams 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
--- OUTSIDE RECORDS SUMMARY | 2025-05-07 19:11 | XMS_ITS | Referral Summary ---
Author Organization [facility] [place] [address] [facility] Address [address] [place] [address] Care Team Providers Care Customer Assistance Associate Name Role Phone Kathryn Martin NP Primary Care Provider [phone] Encounters Date Type Department Care Team Description 05/06/2025 Telephone [facility] [address] [address] Kathryn Martin NP Labs 04/01/2025 10:15 AM CDT Office Visit [facility] [address] [address] Daryl Fiore MD Neck pain (Primary Dx); Chronic tension-type headache, not intractable 03/27/2025 [facility]phone [facility] [address] [address] Kathryn Martin NP Appointment Request from Last 3 Months Allergies Active Allergy Reactions Criticality Noted Date [...] 10/23/2024 Assessment & Plan (10/23/2024 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 Saleem at [facility] Continue Lamotrigine 25 mg BID Family history of hypertrophic cardiomyopathy Elevated blood pressure read ing without diagnosis of hypertension 03/11/2024 HERNANDEZ (dyspnea on exertion) 03/11/2024 Palpitations 03/11/2024 Other specified symptoms and signs involving the circulatory and respiratory systems 03/11/2024 Overweight with body mass in dex (BMI) of 29 to 29.9 in adult 03/11/2024 Immunizations Immunization Administration Dates Next Due DTaP [...] Unspecified 02/28/2010, 5,03/06/2005,01/02 Tdap 07/07/2016 Varicella 02/28/2010,12/01/2005 Social History Tobacco Use Types Packs/Day Years [...] 04/01/2025 10:15 AM CDT Plan of Treatment Not on file [facility] Care Teams Customer Assistance Associate Relationship Specialty Start Date End Date Kathryn Martin NP PCP - General Family Medicine 06/10/24
[2025-05-07 19:14] VITALS: BP 134/85; PULSE 94; RESP 20; TEMP 36.9; O2SAT 100
--- NOTE | 2025-05-07 19:25 | ED.EAR ---
HPI - Ear Problem General Chief complaint: Ear Stated complaint: Ear pain Time Seen by Provider: 05/07/25 19:21 Source: patient and RN notes reviewed Mode of arrival: ambulatory Limitations: no limitations History of Present Illness HPI Narrative: Patient presents today with a 2 day history of left ear pain and clogged sensation. Denies drainage or any additional upper respiratory in symptoms to include rhinorrhea, congestion, cough, sore throat. Currently rates her pain 7/10 and has tried Tylenol without relief. Related Data Home Medications ?Medication ?Instructions ?Recorded ?Confirmed ?Last Taken ?Type lamotrigine 25 mg tablet 25 mg PO DAILY 05/26/24 11/11/24 Unknown History albuterol sulfate 90 mcg/actuation inhalation 05/07/25 Unknown History aerosol inhaler ciprofloxacin HCl 500 mg tablet mg 05/07/25 Unknown History eletriptan 40 mg tablet mg 05/07/25 Unknown History hydroxyzine pamoate 25 mg capsule mg 05/07/25 Unknown History trazodone 50 mg tablet mg 05/07/25 Unknown History Allergies Allergy/AdvReac Type Severity Reaction Status Date / Time venom-wasp Allergy Intermediate Anaphylaxis Verified 05/07/25 19:16 [facility] Past Medical History Medical History Irregular periods Anxiety and depression Bipolar Surveillance for Depo-Provera contraception No significant past medical history Surgical History Surgical History No significant past surgical history Family History Family History Other No significant family history Social History Social History Smoking status: Current every day smoker Tobacco type: e-cigarettes/vaping Second hand tobacco smoke exposure: No Alcohol intake: current Alcohol use details: 1-2 a year Substance use: never Substance use type: does not use Do You Feel Safe in your Home?: Yes Lack of Transportation: No Lack of Food: Never True Current Housing: I Have Housing Concerned About Future Housing: No Difficulty Paying Gas/Electric Bills: No Difficulty Paying for Meds: No Currently Unemployed: No Education: High School Diploma/GED Difficulty w/ Childcare or Family Care: No Living arrangements: with family Additional living arrangements comments: engaged Occupation/Education: occupation 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 Please see nursing chart for further information. There is no relevant family history pertinent to the presenting complaint Exam Narrative: GENERAL: Well-appearing, well-nourished, and in no acute distress. HEAD: Normocephalic, atraumatic. EYES: EOMI. No redness or drainage. Conjunctivae normal. ENT: Mucous membranes pink and moist. Nares clear. No rhinorrhea. Right ear normal. Left ear: Mild serous effusion without evidence of bacterial infection. No movement or tragal tenderness. Throat normal with scant white postnasal drainage. Uvula midline. NECK: Normal AROM. Supple. No lymphadenopathy. CHEST: No respiratory distress. EXTREMITIES: Normal range of motion. No edema. SKIN: Warm, dry, no rash. Capillary refill normal. Normal skin turgor. NEURO: No focal deficits. Alert and oriented x3. Gait steady. PSYCH: Normal affect. No signs of depression or anxiety. Course Course Level of Care: Express Care Visit Vital Signs Vital signs: Vital Signs Temperature 98.5 F 05/07/25 19:14 Pulse Rate 94 05/07/25 19:14 Respiratory Rate 20 05/07/25 19:14 Blood Pressure 134/85 05/07/25 19:14 Pulse Oximetry 100 05/07/25 19:14 Oxygen Delivery Room Air 05/07/25 19:14 Temperature 98.5 F 05/07/25 19:14 Pulse Rate 94 05/07/25 19:14 Respiratory Rate 20 05/07/25 19:14 Blood Pressure 134/85 05/07/25 19:14 Pulse Oximetry 100 05/07/25 19:14 Oxygen Delivery Room Air 05/07/25 19:14 Reviewed Medical Decision Making MDM Narrative Medical decision making narrative: 19-year-old female patient presents with left ear pain x2 days with clogged sensation. Denies any additional symptoms. Tylenol has not provided relief. Exam shows mild serous effusion but otherwise negative. Recommend starting an antihistamine, nasal steroid, and decongestant. Symptoms likely allergic in etiology. Vital signs stable. Patient agrees with plan. Anticipatory guidance given. Differential Diagnosis Differential Diagnosis: Otitis media, otitis externa, ruptured TM, serous otitis, cerumen impaction, URI, pharyngitis, seasonal allergies Vital Signs Vital Signs: Vital Signs Temperature 98.5 F 05/07/25 19:14 Pulse Rate 94 05/07/25 19:14 Respiratory Rate 20 05/07/25 19:14 Blood Pressure 134/85 05/07/25 19:14 Pulse Oximetry 100 05/07/25 19:14 Oxygen Delivery Room Air 05/07/25 19:14 Temperature 98.5 F 05/07/25 19:14 Pulse Rate 94 05/07/25 19:14 Respiratory Rate 20 05/07/25 19:14 Blood Pressure 134/85 05/07/25 19:14 Pulse Oximetry 100 05/07/25 19:14 Oxygen Delivery Room Air 05/07/25 19:14 Critical Care Time Critical Care Time Critical Care Time: No Discharge Plan Discharge Clinical Impression: Acute serous otitis media of left ear Patient Disposition: Home Condition: Stable Instructions: Fluid In The Ear (Serous Otitis Media) (ED) Additional Instructions: You have a small amount of fluid behind your left ear drum, but is otherwise normal without evidence of infection. Please start a daily antihistamine such as Zyrtec, Claritin, or Sarah. Consider also starting an intranasal steroid such as Flonase, and a decongestant such as Sudafed. You may also continue Tylenol or ibuprofen for pain if needed. Follow-up with your PCP in 1 week if symptoms are not improving. Your blood pressure was elevated above 120/80 today at Urgent Care. This puts you above the threshold for follow up. Please schedule a followup visit with your personal physician as soon as possible, for further evaluation and treatment. Even blood pressure exceeding 120/80 may indicate pre-hypertension. Patient Language: Palauan Prescriptions: No Action lamotrigine 25 mg tablet 25 mg PO DAILY trazodone 50 mg tablet ciprofloxacin HCl 500 mg tablet albuterol sulfate 90 mcg/actuation HFA aerosol inhaler INHALATION hydroxyzine pamoate 25 mg capsule eletriptan 40 mg tablet norelgestromin-ethin.estradiol [Xulane] 150-35 mcg/24 hr patch weekly 1 patch transdermal WEEKLY Qty: 9 3RF Rx Instructions: apply once weekly for 3 weeks of a 4-week cycle Follow-up/Referrals: Mario,Kathryn Johnson [Primary Care Provider] - Time of Disposition: 19:30
== END 2025-05-07 19:35 | disposition home or self-care (01) ==
PROVIDERS: Emergency Provider Nurse Practitioner; PCP Nurse Practitioner
DX: H65.02 Acute serous otitis media, left ear (principal); F17.290 Nicotine dependence, other tobacco product, uncomplicated; F31.9 Bipolar disorder, unspecified; F41.9 Anxiety disorder, unspecified
CPT/HCPCS: 99211; G0463